=== PATIENT | female | born 1985 | race Caucasian/White ===

== ENCOUNTER 2020-05-02 13:28 | Outpatient (CLI) | payer BC, SELFPAY ==
[2020-05-02 13:42] LABS: Hematocrit 34.3 % (37.0-47.0); Hemoglobin 11.9 g/dL (12.0-15.0); Mean Corpuscular HGB Conc 34.7 g/dl (32-36); Mean Corpuscular Hemoglobin 33.6 pg (26-34); Mean Corpuscular Volume 96.9 fl (80-100); Mean Platelet Volume 9.7 fl (7.4-10.4); Platelet Count Result 182 k/mm3 (150-375); Red Blood Count 3.54 M/mm3 (4.2-5.4); Red Cell Distribution Width 12.7 % (11.5-14.5); White Blood Count 8.7 K/mm3 (4.5-10.0)
[2020-05-04 13:31] LABS: Rapid Plasma Reagin Non-Reactive (NonReactive)
== END 2020-05-02 13:29 | disposition home or self-care (01) ==
LOC: ANHLAB 13:30
PROVIDERS: PCP Family Medicine; Visit Provider Obstetrics & Gynecology Gynecology
DX: Z34.93 Encounter for supervision of normal pregnancy, unspecified, third trimester (principal); Z3A.00 Weeks of gestation of pregnancy not specified
CPT/HCPCS: 36415; 85027; 86592; 86850; 86900; 86901

== ENCOUNTER 2020-05-04 06:58 | Inpatient (IN) | payer BC, SELFPAY ==
[2020-05-04] VITALS (63 sets, daily range): BP systolic 111–139; BP diastolic 56–80; PULSE 58–87; RESP 15–20; TEMP 36.1–37.4; O2SAT 97–100; BMI 36.3
--- NOTE | 2020-05-04 07:18 | PM.IMHP ---
H&P: HPI History of Present Illness Date/Time: 05/04/20 07:18 Chief complaint: scheduled c/section Narrative: Patient is a 34 yo A1 at 39 weeks admitted for primary csection due to neurologic injury from last delivery. Patient was unable to walk without support due to severe weakness and decreased sensation to the thighs and hips. Options discussed with patient and she has chosen to proceed with csection for this delivery. Risks of infection, bleeding, injury to internal organs, DVT, and anesthesia reviewed. This has been uncomplicated. labs: O+, Rubella Immune, RPR -, HBSAg -, HIV -, GBS -. [facility] Past Medical History Medical History (Updated 05/04/20 @ 07:25 by Anita Lopes MD) Forceps delivery Neurologic abnormality bilateral nerve injury with prior delivery-symptoms resolved Family History Family History (Updated 04/11/20 @ 13:44 by Yudith Guerrero RN) Father Cerebrovascular accident Malignant neoplasm of prostate Colon cancer Mother Osteoporosis Social History Social History Substance use: never Gender identity (if verbalized by the patient): Female Spiritual care concerns: No Meds Home Medications and Allergies Home Medications Medication Instructions Recorded Confirmed Type PNV cmb#95-ferrous fumarate-FA 1 tablet PO DAILY 04/11/20 04/11/20 History [] aspirin 81 mg PO DAILY 04/11/20 04/11/20 History ergocalciferol (vitamin D2) 1,250 mcg PO WEEKLY 04/11/20 04/11/20 History [Vitamin D2] Allergies Allergy/AdvReac Type Severity Reaction Status Date / Time No Known Allergies Allergy Unverified 06/13/18 11:12 Exam Const: General: comfortable and no acute distress Resp: Auscultation: clear to auscultation bilaterally Cardio: Rate: regular rate Rhythm: regular rhythm GI: GI Palp: Yes Other GI palpation findings present (gravid with fundal ht 43 cm) Assessment and Plan Assessment and plan (1) 39 weeks gestation of : Code(s): Z3A.39 - 39 weeks gestation of Status: Acute (2) Neurologic abnormality: Code(s): R29.818 - Other symptoms and signs involving the nervous system Status: Inactive Assessment and Plan: Bilateral nerve injury after prior delivery. Symptoms resolved. Plan to proceed with primary csection.
--- NOTE | 2020-05-04 07:38 | LDADM ---
This patient, Yara Garay, was admitted to Labor/Delivery/Recovery 120 on 05/04/20 at 06:58. Plans for primary section, pain management and were discussed with patient. Patient/family oriented to hospital policies and general routines including ID bracelet, bed and alarms, visiting hours, pain management, procedures, bathroom and other care routines, personal items, smoking policy, room service/diet and guest tray routines, infant security routines, and visiting hours. Patient/Family are encouraged to report perceived risks to care and to ask questions if they do not understand what they are told or what they should do. See OBIX for further documentation.
--- NOTE | 2020-05-04 07:41 | WPDANESEPPF ---
Anes - Initial Pre Proc Eval Procedure: Operation Date: 05/04/20 09:00 Proposed Procedures p Primary Section - Anita Lopes MD Date/Time: 05/04/20 07:41 Surgeon: Anita Lopes MD Pre Op Diagnosis: scheduled c/section Patient Data Age: 34 Gender: F Height: Weight: Last Vital Signs Pulse 85 05/04/20 07:30 BP 139/71 05/04/20 07:30 Allergies Allergy/AdvReac Type Severity Reaction Status Date / Time No Known Allergies Allergy Unverified 06/13/18 11:12 Home Medications Medication Instructions Recorded Confirmed Type PNV cmb#95-ferrous fumarate-FA 1 tablet PO DAILY 04/11/20 04/11/20 History [] aspirin 81 mg PO DAILY 04/11/20 04/11/20 History ergocalciferol (vitamin D2) 1,250 mcg PO WEEKLY 04/11/20 04/11/20 History [Vitamin D2] Patient hx anesthesia problems: none Family hx anesthesia problems: none PMFSH Past Medical History Medical History (Updated 05/04/20 @ 07:25 by Anita Lopes MD) Forceps delivery Neurologic abnormality bilateral nerve injury with prior delivery-symptoms resolved Family History Family History (Updated 04/11/20 @ 13:44 by Yudith Guerrero RN) Father Cerebrovascular accident Malignant neoplasm of prostate Colon cancer Mother Osteoporosis Social History Social History Substance use: never Gender identity (if verbalized by the patient): Female Spiritual care concerns: No Anes - Eval Final PreProcedure Day of Procedure 05/04/20 07:41 Patient weight: overweight Heart: regular rate and rhythm Lungs: clear to auscultation and normal air movement Airway: Mallampati scale class II Neurological: alert and oriented Last oral intake: >/= 8 hours ASA classification: II Emergent: no Anesthetic plan: proceed Anesthesia type and monitoring: regional spinal Informed Consent: The patient's anesthetic plan and its attendant risks and benefits were discussed with the patient/family/POA. Questions were solicited and answers provided to the satisfaction of the patient/family/POA.
[2020-05-04] MEDS: LACTATED RINGERS 1,000 ML 125 ML IV CONT (07:50)
[2020-05-04] MEDS: ceFAZolin 2 GM/D5W 50 ML 2 GM/50 ML BAG IVPB (08:18)
--- NOTE | 2020-05-04 09:13 | PM.PROC ---
Procedure Note - Detailed Date of procedure: 05/04/20 Pre-op diagnosis: scheduled c/section IUP 39 wks Prior neurologic injury with FAVD Post-op diagnosis: same Procedure performed: LTCS Description of procedure: The patient was taken to the operating room placed under spinal anesthesia in the dorsal supine position with a leftward tilt. Once anesthesia was deemed adequate she was prepped and draped in the usual sterile fashion. A Pfannenstiel skin incision was made with a scalpel and carried down to the underlying layer of fascia which was nicked in the midline. The incision is extended laterally using Allen scissors. O[facility]ner was used to tent the fascia which was then dissected off using sharp and blunt dissection. The rectus muscles were in the midline and the peritoneum tented. The peritoneum was entered using Metzenbaum scissors. The incision is extended with blunt traction. The bladder blade is placed. The bladder flap was noted to be low therefore was not detached. The lower uterine segment was incised in a transverse fashion with the scalpel. Clear fluid was noted upon rupture of membranes. The incision is extended laterally using blunt traction. The head is delivered while the virtual office assistant applied fundal pressure. The infant was fully delivered and the cord was clamped and cut. The infant is handed to the waiting nursery nurse. The placenta is removed using manual traction. The uterus is exteriorized and cleared of all clots and debris. The uterine incision is closed using 0 Monocryl in a running locked fashion. Same suture was used to imbricate. The bladder peritoneum has a bleeding vessel on the superficial right side which is cauterized using Bovie. The incision is then noted to be hemostatic. The cul-de-sac is irrigated and the uterus is replaced. The gutters were irrigated. The incision was again inspected and noted to be hemostatic. The fascia closed using 0 Vicryl in a running fashion. Subcutaneous tissues are irrigated and made hemostatic using Bovie cautery. Skin incision was closed using 4 0 Vicryl in a subcuticular fashion. Sponge, instrument, and needle counts are correct per the OR staff. Patient was given Ancef prior to the start of the case. Anesthesia: spinal Surgeon: Anita Lopes MD Estimated blood loss (mL): 745 Drains: Yes (leon) Packing: No Pathology: none sent Complications: No immediate complications Condition: stable Disposition: floor Findings: male 8#15oz with 9/9 ; normal appearing tubes, ovaries, and uterus
--- NOTE | 2020-05-04 09:19 | PM.OBDSVD ---
DS: Admitting Diagnosis Admitting Diagnosis Admitting Diagnosis: scheduled c/section IUP 39 wks previous neurologic injury with first delivery DS: Discharge Diagnosis Discharge Diagnosis (1) delivery delivered: Code(s): O82 - Encounter for delivery without indication Status: Acute (2) 39 weeks gestation of : Code(s): Z3A.39 - 39 weeks gestation of Status: Acute (3) Neurologic abnormality: Code(s): R29.818 - Other symptoms and signs involving the nervous system Status: Acute OB - DS: Summary OB Procedures : Ultrasound OB Procedures Intrapartum: low cervical, transverse OB Procedures: : None Peripartum Data Infant Delivery Method: Section Procedures: Procedures Operation Date: 05/04/20 09:00 <No data on this case meets the specified criteria> complications: none Status at Discharge Functional status at discharge: independent ambulation Overall status at discharge: patient is progressing back to baseline Time Spent with Patient Time attestation: Total time spent providing and/or coordinating discharge services: Discharge Plan Discharge Attending physician on discharge: Anita Lopes Discharging Clinician: Anita Lopes Anticipated Discharge Date/Time: 05/06/20 09:20 Patient Disposition: Home, Self-Care Activity: may shower, may drive after 2 weeks and pelvic rest Diet: regular Wound Care Instructions: incision open to air Discharge Instructions: Education: Mom and Baby Guide Given to: Mother Follow-Up: Call your delivering provider's office for an appointment to be seen in: 1 Week Mom [facility] baby [facility] follow-up [facility]. Appointment Date/Time: May 08, 2020 at 11:00 am What to expect at your follow-up visit: Physical Assessment Call [phone] if you are unable to keep your appointment time. BREAST CARE: * Wear a snug supportive bra. * For engorgement discomfort: Breast Feeding: * Apply warm moist washcloths * Express milk as needed to relieve engorgement * Wear loose clothing * For sore nipples: * Identify correct latch-on * Apply warm moist washcloths before and after nursing * Air dry nipples after nursing * May apply Lansinoh cream to nipples ABDOMINAL INCISION: (if applicable) * Allow incision to air dry * Do NOT use lotions for powders on your incision * When showering, allow soap and water to run over the incision, but do not wash incision EPISIOTOMY/PERINEAL CARE: * Until bleeding stops, use your mehnaz bottle after urinating * Change your pad frequently throughout the day * No tub baths until seen by your physician - You may shower ACTIVITY: * Rest as much as possible. * Do not exercise or lift anything heavier than your baby (such as laundry or other children.) * Avoid stairs or driving as much as possible. * Do not put anything into the vagina. No douching, tampons, or sexual activity until seen by physician. NOTIFY PHYSICIAN IF YOU HAVE ANY QUESTIONS OR IF ANY OF THE FOLLOWING SYMPTOMS OCCUR: * If your incision becomes red, swollen, or more painful than what you have experienced in the hospital. * If your vaginal bleeding becomes foul smelling. * If your vaginal bleeding becomes more heavy than a period or if your bleeding changes from pink to bright red. However, you may pass an occasional walnut-sized clot once or twice for the first week . * If you experience a sharp, shooting pain in you calves. * If you discover a hard, reddened area on your breast or if you experience flu-like symptoms. DIET: * Eat regular, well-balanced meals. * Drink plenty of fluids daily. If , drink to thirst. Stand Alone Forms: General Discharge Information Follow-up/Refer
[2020-05-04] MEDS: ONDANSETRON INJ 4 MG/2 ML VIAL IV PUSH (09:23)
[2020-05-04] MEDS: OXYTOCIN 30 UNITS/NS 500 ML 30 UNITS/500 ML BAG 125 UNITS IV CONT (09:37)
--- NOTE | 2020-05-04 11:31 | PC.NURSE ---
Patient transferred to post room #281 per stretcher from labor and delivery. Support person present. Oriented to unit, room, information board, rooming in, admission packet and security measures. Patient verbalizes understanding.
[2020-05-04] MEDS: DEXTROSE 5%/0.45% SOD CHL 1,000 ML 125 ML IV CONT (14:00)
[2020-05-04] MEDS: ACETAMINOPHEN 325 MG TABLET 650 MG PO (22:18)
[2020-05-05] VITALS: BP 108/68; PULSE 77; RESP 18; TEMP 36.6; O2SAT 96
[2020-05-05] MEDS: IBUPROFEN 600 MG TABLET PO ×3 (00:01→15:02)
[2020-05-05 04:30] VITALS: BP 108/56; PULSE 81; RESP 18; TEMP 36.8; O2SAT 96
[2020-05-05] MEDS: ACETAMINOPHEN 325 MG TABLET 650 MG PO ×3 (06:03→20:07)
[2020-05-05 06:13] LABS: Basophils Percent Auto 0.4 % (0.2-1.2); Eosinophils Absolute Auto 0.1 K/mm3 (0-0.3); Eosinophils Percent Auto 1.2 % (0-4.4); Hematocrit 28.5 % (37.0-47.0); Immature Granulocyte Absolute 0.07 K/mm3 (0.00-0.031); Immature Granulocyte Percent A 0.6 % (0-0.5); Lymphocytes Absolute Auto 1.78 K/mm3 (0.9-3.2); Lymphocytes Percent Auto 15.8 % (18.3-44.2); Mean Corpuscular HGB Conc 35.1 g/dl (32-36); Mean Corpuscular Hemoglobin 33.8 pg (26-34); Mean Corpuscular Volume 96.3 fl (80-100); Mean Platelet Volume 10.9 fl (7.4-10.4); Monocytes Absolute Auto 0.6 K/mm3 (0.1-0.6); Monocytes Percent Auto 5.5 % (2.6-8.5); Neutrophils Absolute Auto 8.7 K/mm3 (1.3-6.7); Neutrophils Percent Auto 76.5 % (45.5-73.1); Platelet Count Result 191 k/mm3 (150-375); Red Blood Count 2.96 M/mm3 (4.2-5.4); Red Cell Distribution Width 12.9 % (11.5-14.5); White Blood Count 11.3 K/mm3 (4.5-10.0)
--- NOTE | 2020-05-05 07:09 | WPDANLDPN2 ---
Anes-Prog Note L&D Date/Time: 05/05/20 07:09 Comfortable throughout: section Neuraxial method: spinal Epidural/Spinal procedure site: clean & non-tender Neuro status: Neuro function grossly intact. Cardiovascular status: normal Respiratory status: normal Airway patency: baseline Mental status: baseline Post-Op hydration status: normal Vital Signs: Last Vital Signs Temp 36.8 C 05/05/20 04:30 Pulse 81 05/05/20 04:30 Resp 18 05/05/20 04:30 BP 108/56 L 05/05/20 04:30 Pulse Ox 96 05/05/20 04:30 Pain score (VAS): 2 I/O: Intake & Output 05/04/20 05/04/20 05/05/20 15:59 23:59 07:59 Intake Total 1150 1000 600 Output Total 2819 397 7601 Balance 150 550 -850 Post-procedural complaints: none Patient feedback: Patient satisfied with anesthetic care.
--- NOTE | 2020-05-05 07:10 | WPDANLDNPN2 ---
Anes-Prog Note L&D-Neuraxial Date/Time: 05/05/20 07:10 Neuraxial medications: intrathecal PF morphine Opiod-related complaints: none Patient feedback: Patient satisfied with post-operative pain management.
[2020-05-05 07:45] VITALS: BP 136/79; PULSE 89; RESP 18; TEMP 37.2; O2SAT 96
--- NOTE | 2020-05-05 07:52 | PM.OBPNVD ---
OB - PN: Subj Subjective Date/time seen: 05/05/20 07:52 Patient comments: no complaints and pain well controlled baby status: doing well OB - PN: Obj Data Labs CBC & Chem 7: 05/05/20 04:27 Labs: Laboratory Results - last 24 hr 05/05/20 04:27 WBC 11.3 H RBC 2.96 L Hgb 10.0 L Hct 28.5 L MCV 96.3 MCH 33.8 MCHC 35.1 RDW 12.9 Plt Count 191 MPV 10.9 H Immature Gran % (Auto) 0.6 H Neut % (Auto) 76.5 H Lymph % (Auto) 15.8 L [place] % (Auto) 5.5 Eos % (Auto) 1.2 Baso % (Auto) 0.4 Lymph # (Auto) 1.78 [place] # (Auto) 0.6 Eos # (Auto) 0.1 Baso # (Auto) 0.0 Abs Immat Gran (auto) 0.07 H Absolute Neuts (auto) 8.7 H Absolute Nucleated RBC 0.0 Nucleated RBC % 0.0 OB - PN A/P Assessment and Plan (1) delivery delivered: Code(s): O82 - Encounter for delivery without indication Status: Acute Plan day: 1 Plan: routine care Time Spent With Patient Time: Total time spent is greater than 50% in coordination of care (as documented) at patient's floor/unit and/or counseling patient: Exam Narrative: Exam Narrative: inc c/d/i : Bimanual exam- vagina & uterus: other (Uterus firm, nt @U)
[2020-05-05] MEDS: MULTIVIT/MIN/PREN/FOL AC/IRON TABLET 1 TAB PO (08:50)
[2020-05-05] MEDS: DOCUSATE SODIUM 100 MG CAPSULE PO ×2 (08:50→15:02)
--- NOTE | 2020-05-05 10:18 | PC.NURSE ---
Consulted with patient, reviewed feeding cues, frequencies, duration of feedings, feeding elimination flow sheet, and signs of adequate intake. Reviewed positioning/alignment, holding breast and asymmetrical latch on. Infant is able to latch correctly with use of nipple shield. nursed eagerly, with steady draws and frequent swallowing noted. Reviewed signs of a correct latch, effective nursing and suck swallow ratio. was able to maintain latch without discomfort to mother. Nipple care reviewed. Instructed mother to call out for RN assistance if she is unable to latch infant for feeding or she has discomfort with nursing. Instructed feeding should be initiated three hours from start of last feeding or if feeding cues are noted before. Mother voiced understanding of information shared.
[2020-05-05 20:00] VITALS: BP 119/63; PULSE 74; RESP 18; TEMP 36.4; O2SAT 98
[2020-05-05] MEDS: SIMETHICONE 80 MG TAB.CHEW PO (20:07)
[2020-05-06] MEDS: IBUPROFEN 600 MG TABLET PO ×2 (00:34→08:18)
[2020-05-06 07:55] VITALS: BP 113/65; PULSE 80; RESP 18; TEMP 36.9; O2SAT 100
[2020-05-06] MEDS: MULTIVIT/MIN/PREN/FOL AC/IRON TABLET 1 TAB PO (08:18)
[2020-05-06] MEDS: DOCUSATE SODIUM 100 MG CAPSULE PO (08:18)
--- NOTE | 2020-05-06 08:50 | PC.NURSE ---
Observed mother is able to independently latch infant with appropriate positioning/alignment. Mother reports her milk is in, is eagerly feeding with rhythmic draws and freq swallowing is noted. Mother continues to use the nipple shield on the right breast. She denies any nipple discomfort, is feeding as required and waking to feed if needed. has had at least 8 effective feedings in the past 24 hours, supplementing at times. is currently meeting outcomes for weight, output, jaundice and feeding frequencies. Mother states she feels confident to continue effective at home, with plans to discontinue supplementation. Mother is pumping after most feedings due to shield use. Advised once is satisfied and gaining weight, mother can discontinue pumping. Discussed weaning techniques for shield use. Reviewed transition to breast milk, signs of adequate intake, and engorgement/relief. Instructed to call ICP if intake/output less than required. Reviewed regular medications mother is taking. Information provided per [place]. Reviewed community resources on the [facility] website and in the Mom/Baby guide. Information on outpatient services provided. Mother has no further questions at this time.
--- NOTE | 2020-05-06 12:00 | PC.NURSE ---
Patient instructed to view the discharge video Mother & Baby Care, The First Two Weeks online. Patient was given the opportunity and encouraged to ask questions. Patient verbalized understanding of information shared and has been given the mother/baby guide for home reference.
[2020-05-06] MEDS: ACETAMINOPHEN 325 MG TABLET 650 MG PO (12:59)
[2020-05-08 11:29] VITALS: BP 124/78; PULSE 81; RESP 20; TEMP 37.4; O2SAT 98
== END 2020-05-06 14:25 | disposition home or self-care (01) | DRG 788 ==
LOC: ANHLDR 09:21 → ANHOB2 05-06 11:18 → ANHLDR 05-08 09:05 → ANHOB2 05-08 09:05
PROVIDERS: Admitting Provider Obstetrics & Gynecology Gynecology; PCP Family Medicine; Visit Provider Obstetrics & Gynecology
PROC: 10D00Z1 Extraction of Products of Conception, Low, Open Approach (ICD-10-PCS; CPT 59514; principal; 2020-05-04 09:00)
DX: O82 Encounter for cesarean delivery without indication (principal); Z3A.39 39 weeks gestation of pregnancy; Z37.0 Single live birth
CPT/HCPCS: 36415; 85025; A9270; J0131; J0690; J2274; J2405; J2590; J7120

== ENCOUNTER 2023-09-22 09:23 | Outpatient (CLI) | payer BC, SELFPAY ==
--- NOTE | ~2023-09-22 | MMUS_ITS ---
EXAMINATION: MM diagnostic dickson BI w chela, US breast BI complete HISTORY: Left breast lump was felt in July 2023 but disappeared the same day. Chronic bilateral nipp le inversion. TECHNIQUE: ML, MLO and CC 3-D tomosynthesis images of both breasts were performed and synthetic 2-D i mages were generated. CAD analysis was submitted and interpreted. High resolution complete bilateral breast ultrasound examination including all 4 quadrants and subareolar area of each breast was perfor med. COMPARISON: None BREAST PARENCHYMAL COMPOSITION: The breasts are heterogeneously dense, which may obscure small masses . FINDINGS: MAMMOGRAPHIC FINDINGS: No suspicious mass or architectural distortion, malignant calcification, skin thickening or retractio n is detected. ULTRASOUND: There is an approximately 2 x 4 mm cyst of the right breast at 10:00 9 cm from the nipple . No suspic ious mass or shadowing of either breast is detected. IMPRESSION: 1. Benign finding 2. Routine annual mammographic screening is recommended BI-RADS Category 2: Benign finding(s). Reviewed, dictated and finalized at location A. IMPRESSION: 1. Benign finding 2. Routine annual mammographic screening is recommended BI-RADS Category 2: Benign finding(s).
== END 2023-09-22 09:24 ==
PROVIDERS: PCP Nurse Practitioner Women's Health; Visit Provider Obstetrics & Gynecology Gynecology
DX: N63.20 Unspecified lump in the left breast, unspecified quadrant (principal)
CPT/HCPCS: 76641; 77062; 77066; G0279

== ENCOUNTER 2024-11-19 10:20 | Outpatient (CLI) | payer BC, SELFPAY ==
--- NOTE | ~2024-11-19 | MM_ITS ---
EXAMINATION: MM screening dickson BI w chela HISTORY: Screening mammogram TECHNIQUE: Craniocaudal and mediolateral oblique 3-D tomosynthesis images were obtained and synthetic 2-D images were generated. CAD analysis was submitted and interpreted. COMPARISON: 09/22/2023 BREAST PARENCHYMAL COMPOSITION:Dense: The breasts are heterogeneously dense, which may obscure small masses. FINDINGS: No suspicious mass, calcification, or architectural distortion are identified in either reed ast to suggest malignancy. There has been no suspicious interval change. IMPRESSION: No mammographic evidence of malignancy. Recommend routine screening mammography in one year. BI-RADS Category 1: Negative Reviewed, dictated and finalized at location .
== END 2024-11-19 10:21 | disposition home or self-care (01) ==
LOC: MICIMG 10:21
PROVIDERS: PCP Obstetrics & Gynecology Gynecology; Visit Provider Obstetrics & Gynecology Gynecology
DX: Z12.31 Encounter for screening mammogram for malignant neoplasm of breast (principal)
CPT/HCPCS: 77063; 77067